=== PATIENT | female | born 1970 | race Caucasian/White ===

== ENCOUNTER 2019-09-21 20:23 | Emergency (ER) | payer MEDICAID, SELFPAY ==
[2019-09-21 20:27] VITALS: BP 140/110; PULSE 92; RESP 20; TEMP 37.1; O2SAT 100; BMI 36.1
--- NOTE | 2019-09-21 20:31 | XR_ITS ---
WS: [id number] XR knee LT 3V* [id number] REASON FOR EXAM: left knee injury FINDINGS: Mild degenerate changes of the medial meniscal space. The patella tibial interval was normal. Patellofemoral articulations normal there is spurring off the inferior patella. There is spurring also seen off the medial tibial plateau. 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
--- NOTE | 2019-09-21 21:47 | ED_ITS ---
Entered by Bre Palma, acting as scribe for Carlos Machuca DO Sep 21, 2019 20:23 HPI - Fall General: Chief Complaint: Fall Stated Complaint: fall Time Seen by Provider: 09/21/19 21:47 Source: patient Mode of arrival: wheelchair Limitations: no limitations History of Present Illness: HPI Narrative: 48 yo Female presents to ED with complaint of fall. Pt states that she fell down the bottom 2 steps on the back porch and landed on her head. Pt also complains of left knee pain. Pt's family states that his son heard her screaming in the yard. Pt has a history of MS, mental health, and seizures. MD complaint: fall Onset (ago): hour(s) (Just prior to arrival) Fall from: standing and down stairs (#) (2) Fall witnessed: no Place fall occurred: home Loss of consciousness: None Prolonged down time: no Symptoms prior to fall: none Context: tripped/slipped Location of injury: head Location of injury - extremities: Left: knee Severity scale (1-10): 10 Associated symptoms-after fall: Reports difficulty walking and headache(s); Denies abdominal pain, chest pain, hematuria or neck pain Review of Systems Const: Denies: fever, chills, body aches, fatigue, malaise or night sweats Eyes: Denies: change in vision or blurry vision ENMT: Denies: throat pain, oral sores/lesions, dental pain, nasal discharge or nasal congestion Card: Denies: chest pain, palpitations, irregular heart rhythm, edema, syncope, shortness of breath on exertion, shortness of breath when lying down or leg pain with exertion Resp: Denies: shortness of breath, productive cough, non-productive cough or wheezing GI: Denies: abdominal pain, nausea, vomiting, vomiting blood, coffee grounds in vomit, difficulty swallowing, heartburn/indigestion, diarrhea, constipation, cramping, blood in stool or black tarry stool : Denies: flank pain, painful urination, urinary frequency, urinary urgency, urinary incontinence or blood in urine Musc: Denies: neck pain, back pain, extremity pain, extremity swelling, joint pain or joint swelling Skin/Breast: Denies: rash, itching or redness Neuro: Reports: headache and difficulty walking Psych: Denies: anxiety, depression, loss of interest, visual hallucinations, auditory hallucinations, suicidal ideation or homicidal ideation Endo: Denies: excessive urination, excessive thirst, tired all the time or cold intolerance Kenneth/Lymph: Denies: easy bruising, easy bleeding, petechiae, enlarged lymph nodes or tender lymph nodes PFSH ED PFSH: Social History Smoking and tobacco status: never smoked Physical Exam Const: COMMON NORMALS: average body habitus, oriented x3 and alert GENERAL APPEARANCE: cooperative, comfortable, well kempt and well developed NUTRITIONAL APPEARANCE: obese ORIENTATION/CONSCIOUSNESS: Yes awake, Yes oriented to person and Yes oriented to place HENMT: COMMON NORMALS: normocephalic, head/scalp atraumatic, EAC's normal, TM's normal bilaterally, external nose normal, moist oral mucous membranes and oropharynx normal HEAD & SCALP: normocephalic and atraumatic NOSE: external nose normal EXTERNAL AUDITORY CANAL: EAC's normal TYMPANIC MEMBRANE: TM's normal bilaterally MOUTH: oral and palatal mucosa normal, lip normal and tongue normal THROAT: posterior oropharynx normal and tonsils normal Eye: COMMON NORMALS: PERRL, EOMs intact bilaterally, conjunctivae normal and no scleral icterus CONJUNCTIVA: Yes conjunctivae normal PUPIL: Yes PERRL Neck/C-Spine: COMMON NORMALS: full ROM, no lymphadenopathy, supple, no meningeal signs and thyroid normal THYROID: thyroid normal and asymmetrical Lymph: LYMPHATIC: no lymphadenopathy noted Resp: COMMON NORMALS: normal respiratory effort, no retractions, no use of accessory muscles and clear to auscultation bilaterally AUSCULTATION: clear to auscultation bilaterally Cardio: COMMON NORMALS: regular rate and regular rhythm RATE: regular rate RHYTHM: regular rhythm HEART SOUNDS: no murmurs GI: COMMON NORMALS: normal to inspection, nondistended, normoactive bowel so unds, soft to palpation and no hepatosplenomegaly PALPATION: Yes soft and Yes no hepatosplenomegaly : COMMON NORMALS: Yes no CVA tenderness BLADDER/KIDNEY EXAM: Yes no CVA tenderness Back/Pelvis: COMMON NORMALS: no CVA tenderness LUMBAR SPINE/LOWER BACK: Yes normal to inspection Extremity: COMMON NORMALS: no clubbing, cyanosis or edema, no calf tenderness and no pedal edema LEFT LOWER EXTREMITY: Yes knee joint Neuro: COMMON NORMALS: oriented x3 SENSORIUM/ORIENTATION: Yes alert, Yes oriented to person and Yes oriented to place MENINGEAL SIGNS: Yes no meningeal signs Psych: APPEARANCE: Yes well kempt Skin: COMMON NORMALS: no rashes or lesions noted and skin turgor normal GENERAL SKIN EXAM: no rashes or lesions noted and turgor normal Course ED course: Imaging is negative reviewed with the patient she was up and ambulatory. She is discharged home with a knee immobilizer and crutches advised to follow-up with her primary care doctor in the next 3 to 4 days may need further imaging if does not improve Vital Signs: Vital signs: Vital Signs Temperature 98.7 F 09/21/19 20:27 Pulse Rate 74 09/21/19 23:13 Respiratory Rate 16 09/21/19 23:13 Blood Pressure 119/74 09/21/19 23:13 Pulse Oximetry 95 09/21/19 23:13 MDM - Fall Lab Data: Labs: Lab Results 09/21/19 09/21/19 Range/Units 22:04 22:04 WBC 6.4 (4.0-10.0) 10^3/ uL RBC 4.02 L (4.1-5.3) 10^6/u L Hgb 11.9 (11.5-15.3) g/dL Hct 37.6 (37.0-47.0) % MCV 93.5 (81-99) fL MCH 29.6 (28.0-34.0) pg MCHC 31.6 (30.0-36.0) g/dL RDW 11.9 L (12.1-15.1) % Plt Count 212 (130-400) 10^3/c mm MPV 11.6 H (7.4-10.4) fL Neut % (Auto) 57.6 % Lymph % (Auto) 33.4 % [place] % (Auto) 7.2 % Eos % (Auto) 0.8 % Baso % (Auto) 0.8 % Neut # (Auto) 3.7 (1.8-7.7) 10^3/u L Lymph # (Auto) 2.1 (0.8-4.8) 10^3/u L [place] # (Auto) 0.5 (0.2-0.9) 10^3/u L Eos # (Auto) 0.1 (0.0-0.8) 10^3/u L Baso # (Auto) 0.1 (0.0-0.1) 10^3/u L Nucleated RBC % (a uto) 0 % Nucleated RBCs # 0.0 /100WBC Sodium 136 (136-145) mmol/L Potassium 3.6 (3.5-5.1) mmol/L Chloride 99 (98-107) mmol/L Carbon Dioxide 23 (22-29) mmol/L Anion Gap 17.6 (5-19) BUN 25 H (6-20) mg/dL Creatinine 0.8 (0.5-0.9) mg/dL GFR Calculation 76.6 L (90-130) mL/min Glucose 118 H (65-115) mg/dL Calculated Osmolal ity 280 L (285-295) mOsm/k g Calcium 10.0 (8.5-10.5) mg/dL Discharge Plan Discharge Patient Disposition: Home, Self-Care Clinical Impression: Concussion without loss of consciousness, Multiple sclerosis, Strain of left knee Condition: Stable Discharge Orders: Discharge Order (Routine); Ordered 09/21/19 Ordered By: Carlos Machuca Activity Restrictions/Additional Instructions: Follow-up with your primary care doctor for your knee pain in the next 3 to 4 days Discharge Date/Time: 09/21/19 23:15 Coding Level of Care Code ED Melter Supervisor [employer]ace for Chg Fwd Exam Comprehensive The documentation recorded by the Minerva suarez Carmen, accurately reflects the service I personally performed and the decisions made by Brigette krishna Curtis L, DO Sep 21, 2019 20:23
--- NOTE | 2019-09-21 21:55 | CTR_ITS ---
PROCEDURE INFORMATION: Exam: CT Head Without Contrast Exam date and time: 09/21/2019 9:56 PM Age: 48 years old Clinical indication: Injury or trauma; Initial encounter; Blunt trauma (contusions or hematomas); Without loss of consciousness; Patient HX: PT states leg gave out causing her to fall down stair abrasions to forehead denies loc states has a HX of ms; Additional info: Fall, closed head trauma TECHNIQUE: Imaging protocol: Computed tomography of the head without contrast. Total DLP: 758.68 mGy-cm Radiation optimization: All CT scans at this facility use at least one of these dose optimization techniques: automated exposure control; mA and/or kV adjustment per patient size (includes targeted exams where dose is matched to clinical indication); or iterative reconstruction. COMPARISON: No relevant prior studies available. FINDINGS: Brain: Normal. No hemorrhage. Unremarkable white matter. No mass effect. Ventricles: Normal. No ventriculomegaly. Bones/joints: Unremarkable. No acute fracture. Sinuses: Visualized sinuses are unremarkable. No fluid levels. Mastoid air cells: Visualized mastoid air cells are well aerated. Soft tissues: Unremarkable. CT/CT head wo con* [id number] IMPRESSION: No acute intracranial abnormality. Radiation Dose CTDIVOL = (mGy): DLP = 758.68 (mGy-cm)
[2019-09-21 22:12] LABS: Basophils # 0.1 10^3/uL (0.0-0.1); Basophils % 0.8 %; Eosinophils # 0.1 10^3/uL (0.0-0.8); Eosinophils % 0.8 %; Hematocrit 37.6 % (37.0-47.0); Hemoglobin 11.9 g/dL (11.5-15.3); Lymphocytes # 2.1 10^3/uL (0.8-4.8); Lymphocytes % 33.4 %; Mean Corpuscular HGB Conc 31.6 g/dL (30.0-36.0); Mean Corpuscular Hemoglobin 29.6 pg (28.0-34.0); Mean Corpuscular Volume 93.5 fL (81-99); Mean Platelet Volume 11.6 fL (7.4-10.4); Monocytes # 0.5 10^3/uL (0.2-0.9); Monocytes % 7.2 %; Neutrophils # 3.7 10^3/uL (1.8-7.7); Neutrophils % 57.6 %; Nucleated Red Blood Cells % 0 %; Platelet Count 212 10^3/cmm (130-400); Red Blood Count 4.02 10^6/uL (4.1-5.3); Red Cell Distribution Width 11.9 % (12.1-15.1); White Blood Count 6.4 10^3/uL (4.0-10.0)
[2019-09-21 22:25] LABS: Anion Gap 17.6 (5-19); Blood Urea Nitrogen 25 mg/dL (6-20); Carbon Dioxide 23 mmol/L (22-29); Chloride 99 mmol/L (98-107); Glomerular Filtration Rate 76.6 mL/min (90-130); Glucose 118 mg/dL (65-115); Osmolality Calculated 280 mOsm/kg (285-295); Potassium 3.6 mmol/L (3.5-5.1); Sodium 136 mmol/L (136-145)
[2019-09-21 23:13] VITALS: BP 119/74; PULSE 74; RESP 16; O2SAT 95
== END 2019-09-21 23:15 | disposition home or self-care (01) ==
PROVIDERS: Emergency Provider Family Medicine
DX: S86.112A Strain of other muscle(s) and tendon(s) of posterior muscle group at lower leg level, left leg, initial encounter (principal); S06.0X0A Concussion without loss of consciousness, initial encounter; G35 Multiple sclerosis; R56.9 Unspecified convulsions; E66.9 Obesity, unspecified; Z68.36 Body mass index [BMI] 36.0-36.9, adult; W10.8XXA Fall (on) (from) other stairs and steps, initial encounter; Y92.008 Other place in unspecified non-institutional (private) residence as the place of occurrence of the external cause
CPT/HCPCS: 29530; 70450; 73562; 80048; 85025; 99281; 99283; L1830

== ENCOUNTER 2019-10-11 10:07 | Emergency (ER) | payer MEDICAID, SELFPAY | END 2019-10-11 12:48 | disposition admitted as inpatient to this hospital (09) | LOC: ER 11-12 09:58 | PROVIDERS: Emergency Provider Family Medicine | DX: R45.851 Suicidal ideations (principal) | CPT/HCPCS: 36415; 80053; 80164; 80306; 80307; 81003; 81025; 84443; 85025; 99284; 99285 ==

== ENCOUNTER 2019-10-11 10:07 | Inpatient (IN) | payer MEDICAID, SELFPAY ==
[2019-10-11 10:14] VITALS: BP 168/105; PULSE 76; RESP 16; TEMP 36.6; O2SAT 98; BMI 37.8
--- NOTE | 2019-10-11 10:19 | ED_ITS ---
Entered by Radha Rodrigues, acting as scribe for Carlos Machuca DO Oct 11, 2019 10:07 HPI - Psych General: Chief Complaint: Psychiatric Symptoms Stated Complaint: SI Time Seen by Provider: 10/11/19 10:19 Source: patient and family Mode of arrival: ambulatory Limitations: no limitations History of Present Illness: HPI Narrative: 48 yo female presents with out of medications and SI thoughts. per family the pt started having issues weeks ago. pt has had depression. pt states she has a plan to cut herself. per family pt needs to get back on her medications that they took her off. pt denies any other symptoms at this time. MD complaint: suicidal ideation and feels depressed Onset (ago): week(s) (several weeks ago) Duration: constant and getting worse History of same: Yes Relieving factors: none Exacerbating factors: medication (off medications for 6 weeks) Context: not taking psychiatric medications and significant life stressor Associated psychiatric symptoms: depression and suicidal ideation Associated symptoms: Reports depression, suicidal ideation and racing thoughts Treatments prior to arrival: none If self harm: admits thoughts of self harm and has plan (to cut herself) Review of Systems General: Reports: 10 or more systems reviewed and unremarkable except in HPI and below Const: Denies: fever, chills, body aches, change in appetite, fatigue or malaise ENMT: Denies: throat pain, ear pain, nasal discharge or nasal congestion Card: Denies: chest pain, edema, shortness of breath on exertion or shortness of breath when lying down Resp: Denies: shortness of breath, productive cough or non-productive cough GI: Denies: abdominal pain, nausea, vomiting, vomiting blood, coffee grounds in vomit, diarrhea, constipation, bloating, blood in stool or black tarry stool : Denies: flank pain, difficulty urinating, painful urination, urinary frequency or urinary urgency Skin/Breast: Denies: rash or itching Psych: Reports: depression and suicidal ideation [facility] ED PFSH: Family History (Updated 10/12/19 @ 10:38 by Tyree Clements) Unknown Psychiatric illness Patient's family has bipolar disorder throughout. Social History Smoking and tobacco status: never smoked Physical Exam Const: COMMON NORMALS: no apparent distress, oriented x3 and alert GENERAL APPEARANCE: cooperative, comfortable and other (tearful) ORIENTATION/CONSCIOUSNESS: Yes awake, Yes oriented to person, Yes oriented to place and Yes oriented to time HENMT: COMMON NORMALS: normocephalic, head/scalp atraumatic, hearing grossly normal bilaterally, external ears normal, EAC's normal, TM's normal bilaterally, nasal mucous membranes and turbinates normal, moist oral mucous membranes and oropharynx normal HEAD & SCALP: normocephalic and atraumatic NOSE: nasal mucous membranes and turbinates normal EXTERNAL EAR: Yes external ears normal EXTERNAL AUDITORY CANAL: EAC's normal TYMPANIC MEMBRANE: TM's normal bilaterally Eye: COMMON NORMALS: PERRL, EOMs intact bilaterally, conjunctivae normal and no scleral icterus CONJUNCTIVA: Yes conjunctivae normal PUPIL: Yes PERRL Neck/C-Spine: COMMON NORMALS: full ROM, no lymphadenopathy, supple and no JVD Lymph: LYMPHATIC: no lymphadenopathy noted and no lymphedema noted Resp: COMMON NORMALS: normal respiratory effort, no retractions, no use of accessory muscles and clear to auscultation bilaterally AUSCULTATION: clear to auscultation bilaterally Cardio: COMMON NORMALS: no JVD, regular rate, regular rhythm and no murmurs RATE: regular rate RHYTHM: regular rhythm GI: COMMON NORMALS: soft to palpation and no hepatosplenomegaly AUSCULTATION: Yes normoactive bowel sounds PALPATION: Yes soft, No tender, No guarding and Yes no hepatosplenomegaly Extremity: COMMON NORMALS: normal to inspection, normal capillary refill, no clubbing, cyanosis or edema, no calf tenderness and no pedal edema Neuro: COMMON NORMALS: oriented x3 SENSORIUM/ORIENTATION: Yes alert, Yes oriented to person, Yes oriented to place and Yes oriented to time Psych: COMMON NORMALS: cooperative, affect normal and speech normal ATTITUDE: Yes calm and Yes other (tearful) SPEECH: Yes normal speech MOOD & AFFECT: Yes depressed mood, Yes sad and Yes tearful THOUGHT CONTENT: Yes suicidality Skin: COMMON NORMALS: no rashes or lesions noted GENERAL SKIN EXAM: no rashes or lesions noted MDM - Psych Lab Data: Labs: Lab Results 10/11/19 10/11/19 10/11/19 Range/Units 10:24 10:24 10:24 WBC (4.0-10.0) 10^3/ uL RBC (4.1-5.3) 10^6/u L Hgb (11.5-15.3) g/dL Hct (37.0-47.0) % MCV (81-99) fL MCH (28.0-34.0) pg MCHC (30.0-36.0) g/dL RDW (12.1-15.1) % Plt Count (130-400) 10^3/c mm MPV (7.4-10.4) fL Neut % (Auto) % Lymph % (Auto) % [place] % (Auto) % Eos % (Auto) % Baso % (Auto) % Neut # (Auto) (1.8-7.7) 10^3/u L Lymph # (Auto) (0.8-4.8) 10^3/u L [place] # (Auto) (0.2-0.9) 10^3/u L Eos # (Auto) (0.0-0.8) 10^3/u L Baso # (Auto) (0.0-0.1) 10^3/u L Nucleated RBC % (a uto) % Nucleated RBCs # /100WBC Sodium (136-145) mmol/L Potassium (3.5-5.1) mmol/L Chloride (98-107) mmol/L Carbon Dioxide (22-29) mmol/L Anion Gap (5-19) BUN (6-20) mg/dL Creatinine (0.5-0.9) mg/dL GFR Calculation (90-130) mL/min Glucose (65-115) mg/dL Calculated Osmolal ity (285-295) mOsm/k g Calcium (8.5-10.5) mg/dL Total Bilirubin (0.15-1.2) mg/dL AST (0-32) U/L ALT (0-33) U/L Alkaline Phosphata se (35-105) IU/L Total Protein (6.6-8.7) g/dL Albumin (3.5-5.2) g/dL Globulin (1.3-4.6) g/dL TSH (0.27-4.20) uIU/ mL HCG, Qual Negative (Negative) Urine Color Yellow (Yellow) Urine Appearance Clear (CLEAR) Urine pH 5 (5-7) Ur Specific Gravit y 1.020 (1.005-1.030) Urine Protein Neg (Negative) Urine Glucose (UA) Norm (Normal) Urine Ketones Negative (Negative) Urine Blood Neg (Negative) Urine Nitrate Negative (Negative) Urine Bilirubin Neg (NEGATIVE) Urine Urobilinogen Norm (Negative) mg/dL Ur Leukocyte Cherelle ase Negative (Negative) Salicylates (3-10) mg/dL Urine Opiates Scre en Negative (Negative) ng/mL Acetaminophen (10-30) ug/mL Ur Barbiturates Sc reen Negative (Negative) ng/mL Valproic Acid (50-100) mcg/mL Ur Phencyclidine S crn Negative (Negative) ng/mL Ur Amphetamines Sc reen Positive H (Negative) ng/mL U Benzodiazepines Scrn Negative (Negative) ng/mL Urine Cocaine Scre en Negative (Negative) ng/mL U Marijuana (THC) Screen Negative (Negative) ng/mL Ethyl Alcohol (0-10) mg/dL 10/11/19 10/11/19 Range/Units 11:24 11:24 WBC 5.7 (4.0-10.0) 10^3/ uL RBC 3.94 L (4.1-5.3) 10^6/u L Hgb 11.9 (11.5-15.3) g/dL Hct 37.2 (37.0-47.0) % MCV 94.4 (81-99) fL MCH 30.2 (28.0-34.0) pg MCHC 32.0 (30.0-36.0) g/dL RDW 11.8 L (12.1-15.1) % Plt Count 205 (130-400) 10^3/c mm MPV 11.2 H (7.4-10.4) fL Neut % (Auto) 51.0 % Lymph % (Auto) 41.5 % [place] % (Auto) 5.4 % Eos % (Auto) 0.9 % Baso % (Auto) 1.0 % Neut # (Auto) 2.9 (1.8-7.7) 10^3/u L Lymph # (Auto) 2.4 (0.8-4.8) 10^3/u L [place] # (Auto) 0.3 (0.2-0.9) 10^3/u L Eos # (Auto) 0.1 (0.0-0.8) 10^3/u L Baso # (Auto) 0.1 (0.0-0.1) 10^3/u L Nucleated RBC % (a uto) 0 % Nucleated RBCs # 0.0 /100WBC Sodium 140 (136-145) mmol/L Potassium 4.1 (3.5-5.1) mmol/L Chloride 102 (98-107) mmol/L Carbon Dioxide 27 (22-29) mmol/L Anion Gap 15.1 (5-19) BUN 19 (6-20) mg/dL Creatinine 0.9 (0.5-0.9) mg/dL GFR Calculation 66.8 L (90-130) mL/min Glucose 101 (65-115) mg/dL Calculated Osmolal ity 287 (285-295) mOsm/k g Calcium 10.0 (8.5-10.5) mg/dL Total Bilirubin 0.2 (0.15-1.2) mg/dL AST 18 (0-32) U/L ALT 14 (0-33) U/L Alkaline Phosphata se 94 (35-105) IU/L Total Protein 7.1 (6.6-8.7) g/dL Albumin 4.2 (3.5-5.2) g/dL Globulin 2.9 (1.3-4.6) g/dL TSH 1.25 (0.27-4.20) uIU/ mL HCG, Qual (Negative) Urine Color (Yellow) Urine Appearance (CLEAR) Urine pH (5-7) Ur Specific Gravit y (1.005-1.030) Urine Protein (Negative) Urine Glucose (UA) (Normal) Urine Ketones (Negative) Urine Blood (Negative) Urine Nitrate (Negative) Urine Bilirubin (NEGATIVE) Urine Urobilinogen (Negative) mg/dL Ur Leukocyte Cherelle ase (Negative) Salicylates < 0.3 L (3-10) mg/dL Urine Opiates Scre en (Negative) ng/mL Acetaminophen < 5.0 L (10-30) ug/mL Ur Barbiturates Sc reen (Negative) ng/mL Valproic Acid 3.1 L (50-100) mcg/mL Ur Phencyclidine S crn (Negative) ng/mL Ur Amphetamines Sc reen (Negative) ng/mL U Benzodiazepines Scrn (Negative) ng/mL Urine Cocaine Scre en (Negative) ng/mL U Marijuana (THC) Screen (Negative) ng/mL Ethyl Alcohol < 10 (0-10) mg/dL Discharge Plan Discharge Patient Disposition: Admitted As Inpatient Admit Provider: Tyree Clements Clinical Impression: Suicidal ideation Condition: Stable Discharge Orders: Discharge Order (Routine); Ordered 10/12/19 Ordered By: Tyree Clements Discharge Diet: Usual diet Discharge Activity: Resume usual activity Additional Instructions: Follow[facility] at [facility] ([facility]) [facility] [address] [facility] [address] [place] [address] walk-in hours are 7:30 a.m. -2:30 p.m. Monday through Monday. Go any day during the walk-in hours and request services. Interventions: ED Discharge Assessment Last Done: 10/11/19 12:46 Discharge Date/Time: 10/11/19 12:48 Coding Level of Care Code ED Director Of Instruction for Chg Fwd Exam Comprehensive The documentation recorded by the Ravi suarez Bridget Annette, accurately reflects the service I personally performed and the decisions made by Brigette krishna Curtis L, Oct 11, 2019 10:07
[2019-10-11] MEDS: LORazepam 1 mg Tablet 0.5 MG PO (11:25)
[2019-10-11 11:34] LABS: Basophils # 0.1 10^3/uL (0.0-0.1); Eosinophils # 0.1 10^3/uL (0.0-0.8); Eosinophils % 0.9 %; Hematocrit 37.2 % (37.0-47.0); Hemoglobin 11.9 g/dL (11.5-15.3); Lymphocytes # 2.4 10^3/uL (0.8-4.8); Lymphocytes % 41.5 %; Mean Corpuscular Hemoglobin 30.2 pg (28.0-34.0); Mean Corpuscular Volume 94.4 fL (81-99); Mean Platelet Volume 11.2 fL (7.4-10.4); Monocytes # 0.3 10^3/uL (0.2-0.9); Monocytes % 5.4 %; Neutrophils # 2.9 10^3/uL (1.8-7.7); Nucleated Red Blood Cells % 0 %; Platelet Count 205 10^3/cmm (130-400); Red Blood Count 3.94 10^6/uL (4.1-5.3); Red Cell Distribution Width 11.8 % (12.1-15.1); White Blood Count 5.7 10^3/uL (4.0-10.0)
[2019-10-11 11:38] LABS: Add Urine Microscopic? NO
[2019-10-11 11:42] LABS: HCG Qualitative Urine. Negative (Negative)
[2019-10-11 11:44] LABS: Bilirubin Urine Neg (NEGATIVE); Blood Urine Neg (Negative); Glucose Urine UA Norm (Normal); Ketones Urine Negative (Negative); Leukocyte Esterase Urine Negative (Negative); Nitrate Urine Negative (Negative); Protein Urine Neg (Negative); Urine Appearance Clear (CLEAR); Urine Color Yellow (Yellow); Urobilinogen Urine Norm (Negative); pH Urine 5 (5-7)
[2019-10-11 11:50] LABS: Amphetamines Screen Urine Positive (Negative); Barbiturates Screen Urine Negative (Negative); Benzodiazepines Screen Urine Negative (Negative); Cocaine Screen Urine Negative (Negative); Opiate Screen Urine Negative (Negative); PCP Screen Urine Negative (Negative); THC Screen Urine Negative (Negative)
[2019-10-11 11:58] LABS: Acetaminophen < 5.0 ug/mL (10-30); Alanine Aminotransferase 14 U/L (0-33); Albumin Level 4.2 g/dL (3.5-5.2); Alcohol Level < 10 mg/dL (0-10); Alkaline Phosphatase 94 IU/L (35-105); Anion Gap 15.1 (5-19); Aspartate Amino Transferase 18 U/L (0-32); Blood Urea Nitrogen 19 mg/dL (6-20); Carbon Dioxide 27 mmol/L (22-29); Chloride 102 mmol/L (98-107); Globulin 2.9 g/dL (1.3-4.6); Glomerular Filtration Rate 66.8 mL/min (90-130); Glucose 101 mg/dL (65-115); Osmolality Calculated 287 mOsm/kg (285-295); Potassium 4.1 mmol/L (3.5-5.1); Salicylate < 0.3 mg/dL (3-10); Sodium 140 mmol/L (136-145); Thyroid Stimulating Hormone 1.25 uIU/mL (0.27-4.20); Total Bilirubin 0.2 mg/dL (0.15-1.2); Total Protein 7.1 g/dL (6.6-8.7); Valproic Acid Level 3.1 mcg/mL (50-100)
--- NOTE | 2019-10-11 12:32 | PC.NURSE ---
ONe on one sitter remains with patient.
[2019-10-11 12:46] VITALS: BP 125/92; PULSE 88; RESP 16; O2SAT 99
[2019-10-11 13:32] VITALS: BP 129/81; PULSE 93; RESP 19; TEMP 36.8; O2SAT 98
[2019-10-11 14:00] VITALS: BP 129/81; PULSE 93; RESP 19; TEMP 36.8; O2SAT 98
[2019-10-11 20:01] VITALS: BP 127/87; PULSE 74; RESP 19; TEMP 36.9; O2SAT 99
[2019-10-12 06:00] VITALS: BP 125/75; PULSE 73; RESP 19; TEMP 36.9; O2SAT 96
--- NOTE | 2019-10-12 10:25 | PM.SDS ---
Short Stay Summary Providers Date of Admit/Discharge: 10/12/19 (Patient Discharged following morning. ) Attending Provider: Tyree Clements Chief Complaint: SI HPI History of Present Illness Anni Swain is a 48 year old female who has been treated as an outpatient for bipolar disorder for several years. She was successfully maintained for mood stabilization on Depakote and before that on Topamax. She also received fluoxetine to support her mood and trazodone 150 mg at bedtime for sleep. She was doing well until she began to have seizures and all her medicines were stopped some 2 months ago. She has not had seizures since then but now experiences the absence of psychopharmacotherapy. She says she got cheema yesterday and became rather despondent and came in verbalizing suicidal ideation. She no longer feels that way. Review of Systems Narrative: Const: Denies: fever, chills, body aches, fatigue, malaise or night sweats Eyes: Denies: change in vision or blurry vision ENMT: Denies: throat pain, oral sores/lesions, dental pain, nasal discharge or nasal congestion Card: Denies: chest pain, palpitations, irregular heart rhythm, edema, syncope, shortness of breath on exertion, shortness of breath when lying down or leg pain with exertion Resp: Denies: shortness of breath, productive cough, non-productive cough or wheezing GI: Denies: abdominal pain, nausea, vomiting, vomiting blood, coffee grounds in vomit, difficulty swallowing, heartburn/indigestion, diarrhea, constipation, cramping, blood in stool or black tarry stool : Denies: flank pain, painful urination, urinary frequency, urinary urgency, urinary incontinence or blood in urine Musc: Denies: neck pain, back pain, extremity pain, extremity swelling, joint pain or joint swelling Skin/Breast: Denies: rash, itching or redness Neuro: Reports: headache and difficulty walking Psych: Denies: visual hallucinations, auditory hallucinations, suicidal or homicidal ideation, plan or intent. Endo: Denies: excessive urination, excessive thirst, tired all the time or cold intolerance Kenneth/Lymph: Denies: easy bruising, easy bleeding, petechiae, enlarged lymph nodes or tender lymph nodes Home Meds/Allergies Home Medications and Allergies Allergies Allergy/AdvReac Type Severity Reaction Status Date / Time Sulfa (Sulfonamide Allergy ALGY-Rash Verified 09/21/19 20:26 Antibiotics) buspirone AdvReac Severe ADR-Seizure Verified 10/11/19 10:41 divalproex sodium AdvReac Severe ADR-Seizure Verified 10/11/19 10:41 [From Depakote] fluoxetine AdvReac Severe ADR-Seizure Verified 10/11/19 10:41 PFSH Acute PFSH: Family History (Updated 10/12/19 @ 10:38 by Tyree Clements) Unknown Psychiatric illness Patient's family has bipolar disorder throughout. Social History Smoking and tobacco status: never smoked Supplemental PFSH Information: The patient was successfully treated on Topamax, which will require psychiatric follow-up with titration. I believe the assessment of the ED clinician as to causation of seizures is incorrect. Joe Miranda's study of new-onset seizure disorders in patients taking various psychotropics CLEARLY shows trazodone, which the patient was using for sleep, has a hazard ratio of SEVEN TIMES more likely to cause a seizure than in populations taking no psychotropics. On the other hand, he found S-Citalopram's hazard ratio to be 1.47, much more acceptable. In light of the treatment plan which will be described below (Topamax titration plus S-Citalopram) I believe it to be a far more acceptable approach, even though fluoxetine is likely not the culprit in this case. Depakote is almost unlikely to have caused her seizures, it being an anticonvulsant. Vitals/I&O/Wt Last Vital Signs Temp 98.4 F 10/12/19 06:00 Pulse 73 10/12/19 06:00 Resp 19 H 10/12/19 06:00 BP 125/75 10/12/19 06:00 Pulse Ox 96 10/12/19 06:00 Weight last 48 hrs Weight 169 lb Physical Exam Narrative: EXAM NARRATIVE: Skin: Unremarkable. Head: Normocephalic, atraumatic. Neck: Supple no bruits no thyromegaly. Chest: Clear to auscultation. Abdomen: [place]. Extremities: No cyanosis, clubbing or edema. Neurologic: No cerebellar, sensory or motor deficit noted. Mental status exam: The patient is alert and oriented to person, place, time, and situation. Hygiene is appropriate. Sensorium is clear. The patient maintains appropriate eye contact, is cooperative and relates well to me. Behavior shows no psychomotor agitation. Mood is calm and euthymic. Affect is appropriate to her current mood. Thought processes are linear and goal-directed and they are free of racing, blocking or looseness of association. Speech is of normal rate and volume, without dysarthria, aprosody or pressure. There is no inordinate latency of response. The patient denies auditory or visual hallucinations or delusions. The patient denies suicidal or homicidal ideation, plan or intent. Memory is intact for recent and remote events. Fund of knowledge is adequate given vocabulary. Insight and judgment were deemed to be good given the recognition of problems and desire for treatment. Hospital Course Admission Diagnoses: Suicidal ideation. Hospital Course: Upon interview, the patient revealed that she was in fact bipolar. Her pharmacotherapy is clearly the cause of her seizures, leading to its discontinuation. A review of the NIH literature points very strongly to trazodone as a causal agent and offers data on S-Citalopram showing it to be far safer. She also gave a history of mood stability on Topamax, which should be reinstated via titration on an outpatient basis. The patient today verbalizes a desire to return home. She is a voluntary patient and denies suicidal or homicidal ideation, plan or intent. Mental status assessment confirms this. It also confirms that she is competent, per my assessment today, to request discharge sooner than I would have enacted and she understands the risks involved. Discharge Summary: Patient is to make contact with [facility]. I gave her the walk-in information. She is to take S-Citalopram 10 mg daily with possible titration to 20 mg daily. She is also to be titrated on Topamax, to which she has a history of good response. In the event of extreme deterioration and risk of suicidal ideation she she is to return to the ED for reassessment and possible admission. SSS Data Addt'l Data from Hospital Stay: A review of pharmacology research on causation and seizures yielded the conclusion that the most likely culprit is the trazodone, which she should include in her list of allergies. Also escitalopram can be started now and Topamax should be titrated once she is engaged in treatment at [facility]. Diagnoses at Discharge Discharge Diagnosis (1) Bipolar disorder, current episode depressed, mild: Status: Chronic Problem details: The recrudescence of symptoms is the product of 2 months without pharmacotherapy. This was provoked by (most likely) trazodone-induced seizures. A plan for reinstatement of pharmacotherapy has been set forth to the patient and she verbalized understanding. Discharge Plan Discharge Patient Disposition: Home, Self-Care Condition: Stable Prescriptions: New escitalopram oxalate 10 mg Tablet 10 mg PO DAILY Qty: 30 RF: 1 Discontinued trazodone 150 mg Tablet 150 mg PO BEDTIME RF: 0 topiramate [Topamax] 50 mg Tablet See Rx Instructions .ROUTE .COMPLEX RF: 0 Discharge Orders: Discharge Order (Routine); Ordered 10/12/19 Ordered By: Tyree Clements Discharge Diet: Usual diet Discharge Activity: Resume usual activity Activity Restrictions/Additional Instructions: Follow-up at [facility] ([facility]) [facility] [address] [facility] [facility] [address] [place] [address] walk-in hours are 7:30 a.m. -2:30 p.m. Monday through Monday. Go any day during the walk-in hours and request services. Attestations Medical Necessity Statement*: The patient will be discharged today. Time Spent in Patient Care*: greater than 30 min Specific Discharge Activities: Specific discharge activities: educating patient, discussing with pcp/other providers, discussing with rn case manager hospice/social workers/dc planners, documenting/other paperwork and evaluating patient/reviewing data Other discharge activites (optional): NIH literature research on causation of seizures by psychotropic agents. Quality Metrics Clinical Quality Measures: During this hospital stay, did patient experience: None Coding Level of Care Code Acute Roofer [employer]ator for Chg Fwd Diagnoses Bipolar disorder, current episode depressed, mild F31.31
--- NOTE | 2019-10-12 10:26 | PC.NURSE ---
Called in Rx to [facility] in [place], [place]. Dr Clements prescribed Escitalopram 10 mg #30. This RN called it in and discussed with patient.
[2019-10-12 11:25] VITALS: BP 125/75; PULSE 73; RESP 19; TEMP 36.9; O2SAT 96
== END 2019-10-12 12:45 | disposition home or self-care (01) | DRG 885 ==
LOC: ER 11:07 → NP 12:25
PROVIDERS: Emergency Provider Family Medicine
DX: F31.31 Bipolar disorder, current episode depressed, mild (principal); R45.851 Suicidal ideations; Z88.2 Allergy status to sulfonamides; Z88.8 Allergy status to other drugs, medicaments and biological substances; Z79.899 Other long term (current) drug therapy
CPT/HCPCS: 12345; 36415; 80053; 80164; 80306; 80307; 81003; 81025; 84443; 85025; 99284

== ENCOUNTER → 2020-06-04 14:17 | Outpatient (BNVA) | payer MEDICAID, SELFPAY | PROVIDERS: Visit Provider Specialist | DX: G35 Multiple sclerosis (principal) | CPT/HCPCS: 99204 ==

== ENCOUNTER → 2020-09-02 11:24 | Outpatient (BNVA) | payer MEDICAID, SELFPAY | PROVIDERS: Visit Provider Nurse Practitioner Family | DX: Z20.828 Contact with and (suspected) exposure to other viral communicable diseases (principal) | CPT/HCPCS: 87635 ==

== ENCOUNTER → 2020-11-02 10:41 | Outpatient (BNVA) | payer MEDICAID, SELFPAY | PROVIDERS: Visit Provider Family Medicine | DX: J30.2 Other seasonal allergic rhinitis (principal); J40 Bronchitis, not specified as acute or chronic; E78.2 Mixed hyperlipidemia | CPT/HCPCS: 80053; 80061; 84443; 85025 ==

== ENCOUNTER → 2020-12-04 14:09 | Outpatient (BNVA) | payer MEDICAID, SELFPAY | PROVIDERS: Visit Provider Psychiatry & Neurology Psychiatry | DX: F43.12 Post-traumatic stress disorder, chronic (principal); F33.2 Major depressive disorder, recurrent severe without psychotic features; F41.1 Generalized anxiety disorder; F79 Unspecified intellectual disabilities | CPT/HCPCS: 99204 ==

== ENCOUNTER → 2021-01-20 13:24 | Outpatient (BNVA) | payer MEDICAID, SELFPAY | PROVIDERS: Visit Provider Nurse Practitioner Family | DX: Z20.822 Contact with and (suspected) exposure to COVID-19 (principal) | CPT/HCPCS: 87635 ==

== ENCOUNTER → 2021-01-29 09:27 | Outpatient (BNVA) | payer MEDICAID, SELFPAY | PROVIDERS: Visit Provider Psychiatry & Neurology Psychiatry | DX: F41.1 Generalized anxiety disorder (principal); F33.2 Major depressive disorder, recurrent severe without psychotic features; F79 Unspecified intellectual disabilities; F43.12 Post-traumatic stress disorder, chronic | CPT/HCPCS: 99214 ==

== ENCOUNTER → 2021-05-14 07:24 | Outpatient (BNVA) | payer MEDICAID, SELFPAY | PROVIDERS: Visit Provider Psychiatry & Neurology Psychiatry | DX: F41.1 Generalized anxiety disorder (principal); F33.2 Major depressive disorder, recurrent severe without psychotic features; F43.12 Post-traumatic stress disorder, chronic; F79 Unspecified intellectual disabilities | CPT/HCPCS: 99213 ==

== ENCOUNTER 2021-06-04 12:52 | Outpatient (CLI) | payer MEDICAID, SELFPAY ==
--- NOTE | 2021-06-04 12:59 | XR_ITS ---
WS: [id number] LUMBAR SPINE: 7 VIEWS TECHNIQUE: AP, oblique, lateral, L5-S1 spot. Upright lateral projections in neutral, flexion and exte nsion. HISTORY: M54.50 - Low back pain, unspecified COMPARISON: None available. Normal posterior alignment. Mild narrowing of the disc spaces and endplate osteophytes throughout the lumbar spine. Mild facet joint arthritis L4-5 and L5-S1. There is significant narrowing of the foramina bilaterally at L4-5 and L5-S1. Foraminal stenosis pred ominantly due to facet joint arthritis. SI joints are symmetric bilaterally. No soft tissue abnormalities. With flexion and extension there is no significant change in alignment. XR/XR lumbar spine 6V w f/e [id number] IMPRESSION: 1. No lumbar spine instability. 2. Bilateral foraminal narrowing at L4-5 and L5-S1. For further evaluation of foraminal stenosis consider MRI evaluation.
--- NOTE | 2021-06-04 12:59 | XR_ITS ---
WS: [id number] SACRUM AND COCCYX TECHNIQUE: AP angled and lateral views. HISTORY: M53.3 - Sacrococcygeal disorders, not elsewhere classified COMPARISON: None available. Normal SI joints. No bone destruction. No fracture or malalignment. Visualized bony structures are unremarkable. XR/XR sacrum coccyx min 2V [id number] IMPRESSION: Negative sacrum and coccyx.
== END 2021-06-04 12:53 | disposition home or self-care (01) ==
PROVIDERS: PCP Family Medicine; Visit Provider Family Medicine
DX: M54.50 Low back pain, unspecified (principal); M53.3 Sacrococcygeal disorders, not elsewhere classified
CPT/HCPCS: 72114; 72220

== ENCOUNTER 2021-06-22 14:43 | Outpatient (CLI) | payer MEDICAID, SELFPAY ==
--- NOTE | 2021-06-22 15:15 | MR_ITS ---
WS: [id number] MRI LUMBAR SPINE NONCONTRAST TECHNIQUE: Sagittal T1, T2 and STIR imaging. Axial T1 and T2 imaging. CLINICAL INFORMATION: M54.50 - Low back pain, unspecified COMPARISON: None. FINDINGS: Normal lumbar alignment. No acute compression. No high-grade central canal stenosis. L1-L2: Normal. L2-L3: Normal L3-L4: Minimal annular bulging. Spinal canal and foramen are patent. Mild facet arthropathy. L4-L5: Mild annular bulging with slight effacement of ventral thecal sac. Mild facet arthropathy. Mil d right and no significant left foraminal narrowing. Slight narrowing of the right subarticular reces s. L5-S1: Mild disc bulging with slight effacement of ventral thecal sac. Mild facet arthropathy. Left e ccentric disc bulging with mild left foraminal narrowing. Visualized pelvic bony structures: Normal. Paravertebral soft tissues: Normal. MR/MR lumbar spine wo con* [id number] IMPRESSION: 1. Normal lumbar alignment. No acute compression. No high-grade central canal narrowing. 2. Mild annular bulging L4-5 with slight narrowing of the right subarticular r ecess. Mild right L4-5 foraminal narrowing. 3. Left eccentric disc bulge L5-S1 with mild left foraminal narrowing. 4. Mild facet arthropathy L3-L5.
== END 2021-06-22 14:44 | disposition home or self-care (01) ==
PROVIDERS: PCP Family Medicine; Visit Provider Family Medicine
DX: M51.26 Other intervertebral disc displacement, lumbar region (principal); M51.27 Other intervertebral disc displacement, lumbosacral region; M47.816 Spondylosis without myelopathy or radiculopathy, lumbar region
CPT/HCPCS: 72148

== ENCOUNTER → 2021-08-23 07:33 | Outpatient (BNVA) | payer MEDICAID, SELFPAY | PROVIDERS: PCP Family Medicine; Visit Provider Psychiatry & Neurology Psychiatry | DX: F79 Unspecified intellectual disabilities (principal); F41.1 Generalized anxiety disorder; F33.2 Major depressive disorder, recurrent severe without psychotic features; F43.12 Post-traumatic stress disorder, chronic | CPT/HCPCS: 99213 ==

== ENCOUNTER → 2021-12-06 07:13 | Outpatient (BNVA) | payer MEDICAID, SELFPAY | PROVIDERS: PCP Family Medicine; Visit Provider Psychiatry & Neurology Psychiatry | DX: F41.1 Generalized anxiety disorder (principal); F33.2 Major depressive disorder, recurrent severe without psychotic features; F79 Unspecified intellectual disabilities; F43.12 Post-traumatic stress disorder, chronic | CPT/HCPCS: 99214 ==

== ENCOUNTER → 2022-02-01 13:22 | Outpatient (BNVA) | payer MEDICAID, SELFPAY | PROVIDERS: PCP Family Medicine; Visit Provider Nurse Practitioner Family | DX: R53.83 Other fatigue (principal); F41.1 Generalized anxiety disorder; F33.2 Major depressive disorder, recurrent severe without psychotic features; E78.5 Hyperlipidemia, unspecified; Z78.0 Asymptomatic menopausal state | CPT/HCPCS: 80053; 80061; 82306; 82607; 83550; 85025 ==

== ENCOUNTER 2022-02-08 13:25 | Outpatient (CLI) | payer MEDICAID, SELFPAY ==
--- NOTE | 2022-02-08 13:29 | MM_ITS ---
WS: [id number] BILATERAL 3D TOMOSYNTHESIS DIGITAL SCREENING MAMMOGRAM WITH CAD CLINICAL INFORMATION: Z12.31 - Encounter for screening mammogram for malignant ... HISTORY: Screening mammogram. No current complaints. COMPARISON: None. TECHNIQUE: Bilateral CC and MLO views. FINDINGS: Fatty-replaced breasts bilaterally. Incidental punctate calcification RIGHT breast. No suspicious foc al mass, asymmetry, calcifications, or architectural distortion. No evidence of malignancy. MM/[place] [id number] IMPRESSION: BI-RADS: 2-Benign FOLLOW UP: 1 Year Follow-up Recommend return to annual screening mammography.
== END 2022-02-08 13:26 | disposition home or self-care (01) ==
LOC: RAD 13:25
PROVIDERS: PCP Family Medicine; Visit Provider Nurse Practitioner Family
DX: Z12.31 Encounter for screening mammogram for malignant neoplasm of breast (principal)
CPT/HCPCS: 77063; 77067